=== PATIENT | male | born 1980 | race Caucasian/White ===

== ENCOUNTER 2017-05-17 15:40 | Emergency (ER) | payer SELFPAY ==
[~2017-05-17] VITALS: Ht 182.9 cm; Wt 77.1 kg
[2017-05-17 16:38] VITALS: BP 144/96
--- NOTE | 2017-05-17 16:39 | NUR ---
Received ALOX4 with pt in police custody at this time with pt having a wound noted on the lt side of head.
--- NOTE | 2017-05-17 17:10 | NUR ---
TDap given tolerated well no adverse reaction noted at this time.
[2017-05-17] MEDS ORDERED: LIDOCAINE/EPI 2% 1:100000 20 ML VIAL INJ ONE (18:37)
[2017-05-17 18:55] VITALS: BP 130/72
--- NOTE | 2017-05-17 18:56 | NUR ---
Pt in custody with [place] with ACI given to office and pt with officer signing dc papers.
== END 2017-05-17 18:55 ==
LOC: MED 15:40
DX: S01.81XA Laceration without foreign body of other part of head, initial encounter (principal); W26.8XXA Contact with other sharp object(s), not elsewhere classified, initial encounter; Y93.89 Activity, other specified; Y92.89 Other specified places as the place of occurrence of the external cause; Y99.8 Other external cause status
CPT/HCPCS: 12002; 70450; 90471; 90715; 99284; J2001

== ENCOUNTER 2020-03-05 16:53 | Emergency (ER) | payer OTHER ==
[~2020-03-05] VITALS: Ht 182.9 cm; Wt 68.5 kg
[2020-03-05 16:56] VITALS: BP 156/112
[2020-03-05] MEDS ORDERED: ALUMINUM HYD/MAG/SIMETHICONE 30 ML UDC PO ONE (17:15)
[2020-03-05] MEDS ORDERED: PANTOPRAZOLE 40 MG TABEC PO ONE (17:15)
[2020-03-05] MEDS ORDERED: LORazepam 2 MG/ML VIAL IM ONE (17:55)
[2020-03-05 19:41] VITALS: BP 134/97
== END 2020-03-05 19:42 | disposition home or self-care (01) ==
LOC: MED 16:53
DX: K21.9 Gastro-esophageal reflux disease without esophagitis (principal); F15.10 Other stimulant abuse, uncomplicated
CPT/HCPCS: 71045; 96372; 99283; J2060; Q0092

== ENCOUNTER 2020-08-28 08:30 | Emergency (ER) | payer OTHER ==
[~2020-08-28] VITALS: Ht 182.9 cm; Wt 74.8 kg
[2020-08-28 08:32] VITALS: BP 158/99
[2020-08-28] MEDS ORDERED: LORazepam 2 MG/ML VIAL IM ONE (08:40)
--- NOTE | 2020-08-28 08:40 | NUR ---
39 Y/O MALE BIB SELF C/O INCREASED HEART RATE X TODAY. PT STATES HE DID METH YESTERDAY, LAST TIME BEFORE WAS JUNE 2020; HAS NOT FELT "THIS WAY" PREVIOSULY. PT STATES TINGLING BILATERAL UPPER ARMS, SOME CHEST PAIN, SOB, AND DIZZINESS. PT DENIES NAUSEA/VOMITING, PRESSURE/TIGHTNESS CHEST, SWEATING. SYMMETRICAL FACIAL FEATURES OBSERVED, NO FACIAL DROOPING NOTED, CLEAR SPEECH. PERRLA. AO4, BREATHING EVEN AND UNLABORED, SKIN WARM AND DRY. BED IN LOWEST POSITION, LOCKED, X1 SIDERAIL UP. PMH - DENIED NKA
--- NOTE | 2020-08-28 08:40 | NUR ---
Note undone in EDM - 08/28/20 at 0934 by [facility] 39 Y/O MALE BIB SALEF C/O INCREASED HEART RATE X TODAY. PT STATES HE DID METH YESTERDAY, LAST TIME BEFORE WAS JUNE 2020; HAS NOT FELT "THIS WAY" PREVIOSULY. PT STATES TINGLING BILATERAL UPPER ARMS, SOME CHEST PAIN, SOB, AND DIZZINESS. PT DENIES NAUSEA/VOMITING, PRESSURE/TIGHTNESS CHEST, SWEATING. SYMMETRICAL FACIAL FEATURES OBSERVED, NO FACIAL DROOPING NOTED, CLEAR SPEECH. PERRLA. AO4, BREATHING EVEN AND UNLABORED, SKIN WARM AND DRY. BED IN LOWEST POSITION, LOCKED, X1 SIDERAIL UP. PMH - DENIED NKA
--- NOTE | 2020-08-28 09:26 | NUR ---
X-Ray at bedside.
[2020-08-28 09:47] LABS: BARBITURATE, URINE NEGATIVE ng/ml (NEG <=200); BENZODIAZEPINE, URINE NEGATIVE ng/mL (NEG <=200); CANNABINOID, URINE POSITIVE ng/mL (NEG <=50); COCAINE, URINE NEGATIVE ng/mL (NEG <=300); OPIATE, URINE NEGATIVE ng/mL (NEG <=2000); PHENCYCLIDINE SCREEN,URINE NEGATIVE ng/mL (NEG <=25)
[2020-08-28] MEDS ORDERED: LORazepam 1 MG TAB PO ONE (10:15)
--- NOTE | 2020-08-28 11:15 | NUR ---
Patient discharged with v/s stable. Written and verbal after care instructions ABOUT SUBTANCE ABUSE DISORDER AND PALPITATIONS given and explained. Patient verbalized understanding. Ambulatory with steady gait. All questions addressed prior to discharge. Advised to follow up with PMD.
[2020-08-28 11:17] VITALS: BP 134/97
== END 2020-08-28 11:15 | disposition home or self-care (01) ==
LOC: MED 08:30
DX: F15.10 Other stimulant abuse, uncomplicated (principal); R00.2 Palpitations
CPT/HCPCS: 71045; 80305; 93005; 96372; 99285; J2060

== ENCOUNTER 2021-03-21 08:14 | Emergency (ER) | payer OTHER ==
[~2021-03-21] VITALS: Ht 182.9 cm; Wt 68.9 kg
[2021-03-21 08:25] VITALS: BP 124/98
--- NOTE | 2021-03-21 08:30 | NUR ---
PT WAS EVALUATED OUTSIDE IN TENT, MOVED TO LOBBY PER DR ROSA, WAITING FOR BED ASSIGNMENT.
--- NOTE | 2021-03-21 08:44 | NUR ---
PT AOX4, GCS15. HX OF ENLARGED HEART PER PT AND METH USE, LAST USE LAST WEEK. CC SOB WITHOUT COUGH, ALSO REPORTS CHEST PRESSURE BUT PATIENT STATES"ITS NOT PAIN". PT BREATHING EVEN UNLABORED,CHEST RISE FALL EQUAL. SPEAKING IN FULL COMPLETE SENTENCES IN NON DISTRESSED VOICE.
--- NOTE | 2021-03-21 08:44 | NUR ---
PT AMBULATED TO BED 1
[2021-03-21] MEDS ORDERED: LORazepam 1 MG TAB PO ONE (09:00)
[2021-03-21] MEDS ORDERED: ASPIRIN 325 MG TAB PO ONE (09:00)
--- NOTE | 2021-03-21 09:00 | NUR ---
PT AOX4, GCS15. BREATHING EVEN UNLABORED, CHEST RISE FALL EQUAL. HERE FOR SOB. NO COUGH REPORTS CHEST PRESSURE, BUT DENIES PAIN. will cont to anel
--- NOTE | 2021-03-21 09:01 | NUR ---
rad at bedside
[2021-03-21 09:21] LABS: BASOPHILS % (AUTO) 0.7 % (0.0-2.0); EOSINOPHILS % (AUTO) 0.4 % (0.0-4.0); HEMATOCRIT 47.2 % (36-52); HEMOGLOBIN 15.9 g/dL (12.0-18.0); LYMPHOCYTES # (AUTO) 1.4 K/uL (2.0-11.5); LYMPHOCYTES % (AUTO) 22.3 % (20.5-51.1); MEAN CORPUSCULAR HEMOGLOBIN 32 pg (27-31); MEAN CORPUSCULAR HGB CONC 34 g/dL (33-37); MEAN CORPUSCULAR VOLUME 96.1 fL (80-94); MONOCYTES # (AUTO) 0.4 K/uL (0.8-1.0); NEUTROPHILS # (AUTO) 4.3 K/uL (1.8-7.7); NEUTROPHILS % (AUTO) 69.6 % (42.2-75.2); PLATELET COUNT (AUTO) 197 K/uL (140-450); RED BLOOD CELL COUNT(AUTO) 4.91 MIL/uL (4.20-6.10); RED CELL DISTRIBUTION WIDTH 13.4 % (11.6-13.7); WHITE BLOOD COUNT (AUTO) 6.2 K/uL (4.8-10.8)
[2021-03-21 11:03] LABS: ALBUMIN 3.9 g/dL (3.4-5.0); ANION GAP 20.2 (8-16); CARBON DIOXIDE 21.6 mmol/L (21-32); POTASSIUM 3.8 mmol/L (3.5-5.1); TOTAL BILIRUBIN 0.5 mg/dL (0.0-1.0)
--- NOTE | 2021-03-21 11:09 | NUR ---
UDS WALKED TO LAB.
[2021-03-21 11:30] VITALS: BP 118/83
--- NOTE | 2021-03-21 11:50 | NUR ---
PT REPORTS FEELING THE SAME FROM TIME IN DOOR. NO IMPROVEMENT WITH MEDS PER PATIENT. WILL CONT TO TERRENCE.
[2021-03-21 12:08] LABS: BARBITURATE, URINE NEGATIVE ng/ml (NEG <=200); BENZODIAZEPINE, URINE NEGATIVE ng/mL (NEG <=200); CANNABINOID, URINE POSITIVE ng/mL (NEG <=50); COCAINE, URINE NEGATIVE ng/mL (NEG <=300); OPIATE, URINE NEGATIVE ng/mL (NEG <=2000); PHENCYCLIDINE SCREEN,URINE NEGATIVE ng/mL (NEG <=25)
--- NOTE | 2021-03-21 12:27 | NUR ---
Patient discharged with v/s stable. Written and verbal after care instructions ABOUT PAPLITATIONS given and explained. Patient verbalized understanding. Ambulatory with steady gait. All questions addressed prior to discharge. Advised to follow up with PMD.
== END 2021-03-21 12:27 | disposition home or self-care (01) ==
LOC: MED 08:14
DX: R00.2 Palpitations (principal); R07.9 Chest pain, unspecified; F15.10 Other stimulant abuse, uncomplicated; R06.02 Shortness of breath
CPT/HCPCS: 36415; 71045; 80053; 80305; 83690; 84484; 85025; 93005; 99285; Q0092

== ENCOUNTER 2021-08-06 13:18 | Emergency (ER) | payer OTHER ==
[~2021-08-06] VITALS: Ht 182.9 cm; Wt 62.6 kg
[2021-08-06 13:26] VITALS: BP 128/72
[2021-08-06] MEDS ORDERED: FLUORESCEIN OPTH STRIP 1 MG OP ONE ×2 (13:45→13:55)
--- NOTE | 2021-08-06 14:00 | NUR ---
Note ralph in EDM - 08/06/21 at 1442 by [email or web address] 78 Y/O MALE BIB FAMILY FOR C/O OF POSSIBLE FOREIGN MATTER IN EYE(FIBER GLASS). PT WAS DOING WORK IN HIS HOUSE AND INSTALLING FIBERGLASS. PT STATES THAT HE HAD MUCUS IN HIS EYES LAST NIGHT CAUSING BLURRY VISION. EYES APPEAR RED AND IRRITATED. PMHX: POSS HEART CONDITION.
[2021-08-06] MEDS ORDERED: OFLOS OP (14:21)
[2021-08-06] MEDS ORDERED: CETI10SG1 PO (14:21)
--- NOTE | 2021-08-06 14:38 | NUR ---
Patient discharged with INFORMATION OF ALLERGIC CONJUNCTIVITIS v/s stable. Written and verbal after care instructions given and explained. Patient alert, oriented and verbalized understanding of instructions. Ambulatory with steady gait. All questions addressed prior to discharge. ID band removed. Patient advised to follow up with PMD. Rx of CETIRIZINE AND OFLOXACIN given. Patient educated on indication of medication including possible reaction and side effects. Opportunity to ask questions provided and answered.
--- NOTE | 2021-08-06 14:42 | NUR ---
The patient's care was reviewed and supervised by Sarahi Coleman RN.
== END 2021-08-06 14:37 | disposition home or self-care (01) ==
LOC: MED 13:18
DX: H10.9 Unspecified conjunctivitis (principal); Z79.899 Other long term (current) drug therapy
CPT/HCPCS: 99283

== ENCOUNTER 2022-01-04 14:16 | Emergency (ER) | payer OTHER ==
[~2022-01-04] VITALS: Ht 182.9 cm; Wt 68.2 kg
[~2022-01-04 14:16] MED LIST: CETI10SG1 PO; OFLOS OP
[2022-01-04 14:23] VITALS: BP_SYST 120; BP_SYST 149; BP_DIAS 102; BP_DIAS 97
[2022-01-04 15:05] LABS: BASOPHILS % (AUTO) 0.5 % (0.0-2.0); EOSINOPHILS # (AUTO) 0.1 K/uL (0-0.4); EOSINOPHILS % (AUTO) 1.1 % (0.0-4.0); HEMATOCRIT 43.9 % (36-52); HEMOGLOBIN 14.8 g/dL (12.0-18.0); LYMPHOCYTES # (AUTO) 1.2 K/uL (2.0-11.5); LYMPHOCYTES % (AUTO) 17.6 % (20.5-51.1); MEAN CORPUSCULAR HEMOGLOBIN 32 pg (27-31); MEAN CORPUSCULAR HGB CONC 34 g/dL (33-37); MEAN CORPUSCULAR VOLUME 94.9 fL (80-94); MONOCYTES # (AUTO) 0.5 K/uL (0.8-1.0); NEUTROPHILS # (AUTO) 4.8 K/uL (1.8-7.7); NEUTROPHILS % (AUTO) 72.8 % (42.2-75.2); PLATELET COUNT (AUTO) 188 K/uL (140-450); RED BLOOD CELL COUNT(AUTO) 4.62 MIL/uL (4.20-6.10); RED CELL DISTRIBUTION WIDTH 13.7 % (11.6-13.7); WHITE BLOOD COUNT (AUTO) 6.6 K/uL (4.8-10.8)
[2022-01-04 15:26] LABS: ALBUMIN 3.9 g/dL (3.4-5.0); ASPARTATE AMINOTRANSFERASE 17 U/L (15-37); CARBON DIOXIDE 23.5 mmol/L (21-32); CHLORIDE 104 mmol/L (98-107); CREATININE 0.9 mg/dL (0.6-1.3); GFR ARICAN-AMERICAN 121 mL/min (>90); GLUCOSE 123 mg/dL (74-106); POTASSIUM 3.5 mmol/L (3.5-5.1); SODIUM SERUM 139 mmol/L (136-145); TOTAL BILIRUBIN 0.6 mg/dL (0.0-1.0); UREA NITROGEN, BLOOD 20 mg/dL (7-18)
--- NOTE | 2022-01-04 16:41 | NUR ---
41 y/o M BIB self from home c/o chest pain x 3 days. Patient A&Ox4, ambulatory, states relapsing and smoking meth 2 days ago. Patient states 8/10, sternal, pressure/intermittent, non-radiating pain. States chills, SOB. Denies medications prior to arrival. No allevaiting/aggrevating factors. PMH: GERD, Left heart enlargement Meds: Denies NKDA Sx: Denies
[2022-01-04 16:42] VITALS: BP 138/90
--- NOTE | 2022-01-04 17:11 | NUR ---
Patient discharged with v/s stable. Written and verbal after care instructions given and explained. Patient verbalized understanding. Ambulatory with steady gait. All questions addressed prior to discharge. Advised to follow up with PMD. Work note, RAD, and blood work given to patient.
== END 2022-01-04 17:11 | disposition home or self-care (01) ==
LOC: MED 14:16
DX: R07.9 Chest pain, unspecified (principal); I25.10 Atherosclerotic heart disease of native coronary artery without angina pectoris
CPT/HCPCS: 36415; 71045; 80053; 83880; 84484; 85025; 93005; 99285